=== PATIENT | female | born 1990 | race Two or more races ===

== ENCOUNTER 2022-07-02 17:41 | Emergency (ER) | payer MEDICAID, OTHER ==
[~2022-07-02] VITALS: Ht 165.1 cm; Wt 176.3 kg
[2022-07-02 18:16] VITALS: BP 144/77
== END 2022-07-02 22:08 | disposition left against medical advice (07) ==
LOC: ER 17:43
DX: N90.7 Vulvar cyst (principal); Z53.21 Procedure and treatment not carried out due to patient leaving prior to being seen by health care provider